=== PATIENT | female | born 1955 | race Two or more races ===

== ENCOUNTER 2022-11-16 14:09 | Outpatient (CLI) | payer MEDICARE, OTHER ==
[2022-11-16 16:14] LABS: CALCIUM, SERUM 9.5 mg/dL (8.5-10.1); CREATININE 0.6 mg/dL (0.6-1.3)
[2022-11-16 16:21] LABS: BILIRUBIN,URINE NEGATIVE (NEGATIVE); COLOR,URINE YELLOW (YELLOW); LEUKOCYTE ESTERASE ,URINE NEGATIVE (NEGATIVE); NITRITE, URINE NEGATIVE (NEGATIVE); PROTEIN,URINE NEGATIVE (NEGATIVE); UGLUCOSE NEGATIVE (NEGATIVE); UROBILINOGEN,URINE 0.2 EU/dL (0.2)
[2022-11-16 16:28] LABS: BASOPHILS # (AUTO) 0.1 K/uL (0.0-0.2); BASOPHILS % (AUTO) 0.7 % (0.0-2.0); EOSINOPHILS % (AUTO) 2.3 % (0.0-6.0); HEMATOCRIT 41 % (33-45); HEMOGLOBIN 12.9 g/dL (11.5-14.8); LYMPHOCYTES # (AUTO) 1.9 K/uL (0.8-4.8); LYMPHOCYTES % (AUTO) 21.5 % (20.0-44.0); MEAN CORPUSCULAR HGB CONC 32 g/dl (31.0-36.0); MEAN CORPUSCULAR VOLUME 85 fL (82-100); MONOCYTES # (AUTO) 0.5 K/uL (0.1-1.30); MONOCYTES % (AUTO) 5.8 % (2.0-12.0); NEUTROPHILS % (AUTO) 69.7 % (43.0-81.0); PLATELET COUNT (AUTO) 228 K/uL (150-450); RED BLOOD CELL COUNT(AUTO) 4.79 MIL/uL (4.0-5.2); WHITE BLOOD COUNT (AUTO) 8.7 K/uL (4.3-11.0)
== END 2022-11-16 23:59 | disposition home or self-care (01) ==
LOC: RAD 14:09
PROVIDERS: ATTEND Internal Medicine Pulmonary Disease
DX: Z01.818 Encounter for other preprocedural examination (principal)
CPT/HCPCS: 36415; 71045-TC; 80048-TC; 85025-TC; 85730-TC

== ENCOUNTER 2022-11-30 07:55 | Outpatient (CLI) | payer MEDICARE, OTHER | END 2022-11-30 23:59 | disposition home or self-care (01) | LOC: LAB 07:55 | PROVIDERS: ATTEND Dentist Oral and Maxillofacial Surgery | DX: Z01.812 Encounter for preprocedural laboratory examination (principal); Z20.822 Contact with and (suspected) exposure to COVID-19 | CPT/HCPCS: U0003; C9803 ==

== ENCOUNTER 2022-12-04 05:28 | Inpatient (IN) | payer MEDICARE, OTHER ==
--- NOTE | 2022-12-04 06:55 | NUR ---
RN ADMITTING NOTE PATIENT IN BED, A/O X 4, ABLE TO MAKE NEEDS KNOWN; PATIENT IS FOR SURGERY SCHEDULED AT 0730H; STABLE ON ROOM AIR, TOLERATING WELL BREATHING EVENLY AND NO S/S OF DISTRESS; TRIED TO INSERT IV ACCESS TWICE BUT FAILED BECAUSE PATIENT CAN'T TOLERATE INSERTION, ENDORSED TO OR STAFF VIA PHONE; SECURED AND VERIFIED SIGNED CONSENTS, PREOP CHECKLIST ACCOMPLISHED; ENCOURAGED VERBALIZATION OF NEEDS; SAFETY MEASURES IMPLEMENTED, BED IN LOW AND LOCKED POSITION, SIDE RAILS UP X 2, CALL LIGHT WITHIN REACH; AWAITING PICKUP FROM OR STAFF.
[2022-12-04] MEDS ORDERED: DEXAMETHASONE SOD PHOSPHATE 10 MG/ML VIAL ONE (07:05)
[2022-12-04] MEDS ORDERED: ANESTHESIA TRAY IN PYXIS 1 EA TRAY MC ONE (07:05)
[2022-12-04] MEDS ORDERED: LIDOCAINE HCL/PF 1% 30 ML SDV ONE (07:05)
[2022-12-04] MEDS ORDERED: VANCOMYCIN 1 GM VIAL ONE (07:05)
[2022-12-04] MEDS ORDERED: MIDAZOLAM HCL 2 MG/2ML VIAL ONE (07:20)
[2022-12-04] MEDS ORDERED: FENTANYL PF 100MCG/2ML AMPUL ONE ×2 (07:20→08:58)
[2022-12-04] MEDS ORDERED: FAMOTIDINE/PF INJ 20 MG/2 ML VIAL IV ONE (07:21)
[2022-12-04] MEDS ORDERED: ROCURONIUM BROMIDE 50 MG/5 ML ONE (07:21)
[2022-12-04] MEDS ORDERED: LIDOCAINE 1%-EPI 1:100,000 20 ML VIAL ONE (08:02)
--- NOTE | 2022-12-04 11:55 | NUR ---
RN NOTE RECEIVED PATIENT FROM OR VIA CRISTEL AT THIS TIME, A/O X 4, RECEIVED BEDSIDE REPORT FROM RUDOLPH LE RN. PT HAD ORIF OF BASAL BONE SURGERY. ABLE TO MAKE NEEDS KNOWN; STABLE ON ROOM AIR, TOLERATING WELL BREATHING EVENLY AND NO S/S OF DISTRESS. NO COMPLAINTS OF PAIN AT THIS TIME. VS TAKEN, BP 97/40, P 65, RR 16, TEMP 98.4. NOTIFIED HOSPITALIST PATIENT IS GOING TO BE ADMITTED MED-SURG. SAFETY MEASURES IMPLEMENTED, BED IN LOW AND LOCKED POSITION, SIDE RAILS UP X 2, CALL LIGHT WITHIN REACH, WILL CONTINUE TO MONITOR AND ASSIST.
[2022-12-04 12:00] VITALS: BP 97/40
--- NOTE | 2022-12-04 12:15 | NUR ---
RN NOTE NOTIFIED HOSPITALIST, DR BAIN, PT IS BACK FROM SURGERY AND GOING TO BE ADMITTED MED-SURG AND NEEDS CONSULTATION FOR PULMONOLOGY AND CARDIOLOGY, AWARE, AND SAID WILL TAKE A LOOK.
[2022-12-04] MEDS ORDERED: IV NS 0.9% 1,000 ML IV PRN (13:00)
[2022-12-04] MEDS ORDERED: ACETAMINOPHEN 325 MG TABLET PO PRN ×2 (13:30→20:00)
[2022-12-04 16:09] VITALS: BP 107/56
--- NOTE | 2022-12-04 17:15 | NUR ---
RN NOTE PT COMPLAINED OF PAIN. TYLENOL 650MG PRN GIVEN TO PATIENT. WILL CONTINUE TO MONITOR AND ASSIST.
--- NOTE | 2022-12-04 18:35 | NUR ---
RN CLOSING NOTE PATIENT RESTING IN BED, AWAKE, A/OX4, STABLE ON RA, BREATHING EVEN AND NON LABORED. WITH IV ACCESS ON LEFT WRIST #22G RUNNING NS@30ML/HR. PROVIDED ICE PACKS FOR PATIENT, PT WAS ABLE TO URINATE AFTER SURGERY. SAFETY PRECAUTIONS IN PLACE: CALL LIGHT AND TABLE WITHIN REACH, SIDE RAILS UP X 2, BED IN LOWEST LOCKED POSITION. WILL ENDORSE TO ONCOMING NURSE FOR YENNIFER.
--- NOTE | 2022-12-04 19:50 | NUR ---
MSRN ASLEEP EASILY AWAKENED WHEN CALLED. ICEPACKS ON BOTH JAW AREAS. NO BLEEDING. V/S STABLE. REMINDED TO CALL STAFF FOR ANY ASSISTANCE OR DISCOMFORTS, SAFETY PRECAUTIONS EMPHASIZED. WELL UNDERSTOOD. EAGER TO GO HOME IN AM.
[2022-12-04 20:00] VITALS: BP 120/73
[2022-12-04] MEDS ORDERED: MAG HYDROX/AL HYDROX/SIMETH 30 ML UDC PO PRN (20:00)
[2022-12-04] MEDS ORDERED: ONDANSETRON HCL/PF 4 MG/2 ML VIAL IVP PRN (20:00)
[2022-12-04] MEDS ORDERED: MORPHINE SULFATE INJ 2 MG/ML DISP.SYRIN IV PRN (20:00)
[2022-12-04] MEDS ORDERED: HYDROCODONE/APAP 10/325MG TABLET PO PRN (20:00)
[2022-12-04] MEDS ORDERED: MAGNESIUM HYDROXIDE 30 ML UDC PO PRN (20:00)
[2022-12-04] MEDS ORDERED: Z GUARD REMEDY 4 OZ OINT TP PRN (20:00)
--- NOTE | 2022-12-04 23:57 | NUR ---
MSRN ASLEEP, PRESENT IVF INFUSING WELL. CLOSELY WATCHED.
--- NOTE | 2022-12-05 05:15 | NUR ---
MSRN ASSISTED TO RESTROOM. REFUSED TO USE BSC. VOIDED FREELY. SAT ON THE CHAIR FOR AWHILE.
--- NOTE | 2022-12-05 05:45 | NUR ---
MSRN VERBALIZES SEVERE HEADACHE, FELT DIZZY GETTING UP FROM CHAIR, TYLENOL 2 TABS PO ADMINISTERED. ASSISTED BACK TO BED, FELT BETTER AFTER FEW MINUTES, IVF RESUMED. APPLE JUICE CONSUMED. WANTED SOME JELLO. SERVED. REMINDED TO CALL STAFF FOR FURTHER DISCOMFORTS. CALL LIGHT WITHIN REACH. SAFETY PRECAUTIONS EMPHASIZED. CONTINUED MONITORING. NO BLEEDING. SCD OFF FOR NOW REQUESTED.
[2022-12-05 05:48] LABS: BASOPHILS % (AUTO) 0.1 % (0.0-2.0); EOSINOPHILS % (AUTO) 0.3 % (0.0-6.0); HEMATOCRIT 33 % (33-45); HEMOGLOBIN 10.7 g/dL (11.5-14.8); LYMPHOCYTES # (AUTO) 1.8 K/uL (0.8-4.8); LYMPHOCYTES % (AUTO) 20.1 % (20.0-44.0); MEAN CORPUSCULAR HGB CONC 33 g/dl (31.0-36.0); MEAN CORPUSCULAR VOLUME 84 fL (82-100); MONOCYTES # (AUTO) 0.8 K/uL (0.1-1.30); MONOCYTES % (AUTO) 8.5 % (2.0-12.0); NEUTROPHILS # (AUTO) 6.3 K/uL (1.8-8.9); PLATELET COUNT (AUTO) 231 K/uL (150-450); WHITE BLOOD COUNT (AUTO) 8.9 K/uL (4.3-11.0)
[2022-12-05 06:14] LABS: CALCIUM, SERUM 8.6 mg/dL (8.5-10.1); CREATININE 0.6 mg/dL (0.6-1.3); MAGNESIUM 2.1 mg/dL (1.8-2.4); PHOSPHORUS 3.6 mg/dL (2.5-4.9)
--- NOTE | 2022-12-05 07:27 | NUR ---
MS RN OPENING NOTE RECEIVED PATIENT IN BED, AWAKE. A/O X 4, ABLE TO MAKE NEEDS KNOWN. PATIENT STILL IN PAIN BUT TOLERABLE. PATIENT VERBALIZED THAT SHE IS DIZZY ESPECIALLY DURING AMBULATION. NO BLEEDING NOTED. ON ROOM AIR, TOLERATING WELL. IV ACCESS ON LEFT WRIST #22G, INTACT AND SALINE LOCKED. SAFETY MEASURES IMPLEMENTED: CALL LIGHT AND TABLE WITHIN EASY REACH, SIDE RAILS UP X 2, BED IN LOWEST LOCKED POSITION. WILL CONTINUE TO MONITOR.
[2022-12-05 08:00] VITALS: BP 127/76
[2022-12-05] MEDS ORDERED: ACETAMINOPHEN 325 MG TABLET PO PRN (09:30)
--- NOTE | 2022-12-05 10:05 | NUR ---
RN NOTE PATIENT VERBALIZED THAT SHE IS ON PAIN WITH THE SCALE OF 8/10 BUT PREFERS TO TAKE TYLENOL, TYLENOL 650MG PO PRN GIVEN AT 1000. WILL CONTINUE TO MONITOR.
[2022-12-05] MEDS ORDERED: TRAMADOL HCL 50 MG TABLET PO PRN (10:30)
--- NOTE | 2022-12-05 13:35 | NUR ---
[employer] SALES CONSULTANT NOTES PATIENT DISCHARGED TO HOME, IN STABLE CONDITION. A/O X 4, AMBULATORY, ON ROOM AIR TOLERATING WELL. WITH SMALL SWELLING IN THE RIGHT SIDE OF FACE/JAW DUE TO SURGERY. V/S TAKEN AND RECORDED. NO BLEEDING NOTED. IV ACCESS ON LEFT WRIST REMOVED, DRY DRESSING APPLIED ON SITE. ALL BELONGINGS ACCOUNTED FOR. DISCHARGE INSTRUCTIONS GIVEN TO PATIENT, VERBALIZED UNDERSTANDING. NAME ARM BAND REMOVED. MD AND CHARGE NURSE AWARE OF DISCHARGE. SURGERY MD AWARE. PT LEFT THE UNIT @ 1333 VIA WHEELCHAIR ACCOMPANIED BY DAUGHTER AND SUPERVISOR W[employer]MENT [employer]IL[employer].
== END 2022-12-05 13:30 | disposition home or self-care (01) | DRG 141 ==
LOC: DS 05:28 → MED 05:30
PROVIDERS: ADMIT Internal Medicine; ATTEND Internal Medicine
PROC: 09BQ0ZZ Excision of Right Maxillary Sinus, Open Approach (ICD-10-PCS; principal; 2022-12-04)
PROC: 0N5R0ZZ Destruction of Maxilla, Open Approach (ICD-10-PCS; principal; 2022-12-04)
PROC: 09UQ07Z Supplement Right Maxillary Sinus with Autologous Tissue Substitute, Open Approach (ICD-10-PCS; principal; 2022-12-04)
PROC: 09UR07Z Supplement Left Maxillary Sinus with Autologous Tissue Substitute, Open Approach (ICD-10-PCS; principal; 2022-12-04)
PROC: 09BR0ZX Excision of Left Maxillary Sinus, Open Approach, Diagnostic (ICD-10-PCS; principal; 2022-12-04)
PROC: 0NSR04Z Reposition Maxilla with Internal Fixation Device, Open Approach (ICD-10-PCS; principal; 2022-12-04)
DX: M27.2 Inflammatory conditions of jaws (principal); S02.40CK Maxillary fracture, right side, subsequent encounter for fracture with nonunion; S02.601 Fracture of unspecified part of body of right mandible; S02.40DK Maxillary fracture, left side, subsequent encounter for fracture with nonunion; D16.5 Benign neoplasm of lower jaw bone; D14.0 Benign neoplasm of middle ear, nasal cavity and accessory sinuses; D16.4 Benign neoplasm of bones of skull and face; J32.0 Chronic maxillary sinusitis; E11.9 Type 2 diabetes mellitus without complications; E78.5 Hyperlipidemia, unspecified; E66.9 Obesity, unspecified; G62.9 Polyneuropathy, unspecified; I10 Essential (primary) hypertension; I25.10 Atherosclerotic heart disease of native coronary artery without angina pectoris; I35.0 Nonrheumatic aortic (valve) stenosis; K21.9 Gastro-esophageal reflux disease without esophagitis; M19.90 Unspecified osteoarthritis, unspecified site; M81.0 Age-related osteoporosis without current pathological fracture; Z86.73 Personal history of transient ischemic attack (TIA), and cerebral infarction without residual deficits; Z98.84 Bariatric surgery status; Z88.5 Allergy status to narcotic agent
CPT/HCPCS: 36415; 80048-TC; 82962-TC; 83735-TC; 84100-TC; 85025-TC; 87081-TC; 88305-TC; 88311-TC; 88312-TC; A4217; A4223; C1713; G0378; J1100; J2250; J2370; J2405; J2704; J2765; J3010; J3370; J3490; J7030

== ENCOUNTER 2023-04-12 10:19 | Outpatient (CLI) | payer MEDICARE, OTHER ==
[2023-04-12 11:39] LABS: BASOPHILS # (AUTO) 0.1 K/uL (0.0-0.2); BASOPHILS % (AUTO) 1.1 % (0.0-2.0); EOSINOPHILS # (AUTO) 0.3 K/uL (0.0-0.7); EOSINOPHILS % (AUTO) 4.4 % (0.0-6.0); HEMATOCRIT 36 % (33-45); HEMOGLOBIN 11.3 g/dL (11.5-14.8); LYMPHOCYTES # (AUTO) 2.1 K/uL (0.8-4.8); LYMPHOCYTES % (AUTO) 37.1 % (20.0-44.0); MEAN CORPUSCULAR HEMOGLOBIN 25 PG (26.0-33.0); MEAN CORPUSCULAR HGB CONC 32 g/dl (31.0-36.0); MEAN CORPUSCULAR VOLUME 78 fL (82-100); MONOCYTES # (AUTO) 0.3 K/uL (0.1-1.30); MONOCYTES % (AUTO) 5.9 % (2.0-12.0); NEUTROPHILS # (AUTO) 2.9 K/uL (1.8-8.9); NEUTROPHILS % (AUTO) 51.5 % (43.0-81.0); PLATELET COUNT (AUTO) 287 K/uL (150-450); RED BLOOD CELL COUNT(AUTO) 4.59 MIL/uL (4.0-5.2); RED CELL DISTRIBUTION WIDTH 17.2 % (11.5-15.0); WHITE BLOOD COUNT (AUTO) 5.7 K/uL (4.3-11.0)
[2023-04-12 11:44] LABS: CALCIUM, SERUM 9.5 mg/dL (8.5-10.1); CREATININE 0.6 mg/dL (0.6-1.3); POTASSIUM 4.1 mmol/L (3.5-5.1)
[2023-04-12 11:52] LABS: APPEARANCE,URINE CLEAR (CLEAR); BILIRUBIN,URINE NEGATIVE (NEGATIVE); BLOOD, URINE NEGATIVE Ery/uL (NEGATIVE); COLOR,URINE YELLOW (YELLOW); KETONES,URINE NEGATIVE (NEGATIVE); LEUKOCYTE ESTERASE ,URINE NEGATIVE (NEGATIVE); NITRITE, URINE NEGATIVE (NEGATIVE); PROTEIN,URINE NEGATIVE (NEGATIVE); UGLUCOSE NEGATIVE (NEGATIVE); UROBILINOGEN,URINE 0.2 EU/dL (0.2)
[2023-04-12 12:00] LABS: PARTIAL THROMBOPLASTIN TIME 29.9 SEC (24.3-34.3); PROTHROMBIN TIME 10.5 SECS (9.2-11.1)
== END 2023-04-12 23:59 | disposition home or self-care (01) ==
LOC: RAD 10:19
PROVIDERS: ATTEND Internal Medicine Pulmonary Disease
DX: Z01.818 Encounter for other preprocedural examination (principal); R94.31 Abnormal electrocardiogram [ECG] [EKG]
CPT/HCPCS: 36415; 71045-TC; 80048-TC; 85025-TC; 85730-TC

== ENCOUNTER 2023-04-30 07:27 | Inpatient (IN) | payer MEDICARE, OTHER ==
[~2023-04-30] VITALS: Ht 154.9 cm; Wt 73.9 kg
[2023-04-30 08:00] VITALS: BP 157/65; TEMP 97.7; O2SAT 100
[2023-04-30] MEDS ORDERED: dexaMETHasone SOD PHOSPHATE 10 MG/ML VIAL ONE (09:49)
[2023-04-30] MEDS ORDERED: LIDOCAINE 2%-EPI 1:100,000 30 ML VIAL ONE (09:50)
[2023-04-30] MEDS ORDERED: VANCOMYCIN 1 GM VIAL ONE (09:50)
[2023-04-30] MEDS ORDERED: MAG HYDROX/AL HYDROX/SIMETH 30 ML UDC PO PRN (10:00)
[2023-04-30] MEDS ORDERED: MAGNESIUM HYDROXIDE 30 ML UDC PO PRN (10:00)
[2023-04-30] MEDS ORDERED: HYDROCODONE/APAP 10/325MG TABLET PO PRN (10:00)
[2023-04-30] MEDS ORDERED: ONDANSETRON HCL/PF 4 MG/2 ML VIAL IVP PRN ×2 (10:00→14:00)
[2023-04-30] MEDS ORDERED: ACETAMINOPHEN 325 MG TABLET PO PRN (10:00)
[2023-04-30] MEDS ORDERED: ZOLPIDEM TARTRATE 5 MG TABLET PO PRN (10:00)
[2023-04-30] MEDS ORDERED: Z GUARD REMEDY 4 OZ OINT TP PRN (10:00)
[2023-04-30] MEDS ORDERED: LABETALOL HCL IV 100MG VIAL ONE (11:06)
[2023-04-30] MEDS ORDERED: KETOROLAC TROMETHAMINE INJ 30 MG/ML VIAL IV PRN (14:30)
[2023-04-30 16:00] VITALS: BP 117/70; TEMP 97.6; O2SAT 98
[2023-04-30] MEDS: IV NS 0.9% 1,000 ML IV PRN (16:56)
[2023-04-30 20:00] VITALS: BP 99/60; TEMP 99; O2SAT 94
[2023-04-30] MEDS: VANCOMYCIN 1 GM in IV D5W 250ml IV SCH (21:24)
[2023-05-01] MEDS: IV NS 0.9% 1,000 ML IV PRN (05:11)
[2023-05-01 07:38] LABS: BASOPHILS % (AUTO) 0.1 % (0.0-2.0); HEMATOCRIT 38 % (33-45); HEMOGLOBIN 11.7 g/dL (11.5-14.8); LYMPHOCYTES # (AUTO) 1.3 K/uL (0.8-4.8); LYMPHOCYTES % (AUTO) 14.1 % (20.0-44.0); MEAN CORPUSCULAR HEMOGLOBIN 25 PG (26.0-33.0); MEAN CORPUSCULAR HGB CONC 31 g/dl (31.0-36.0); MEAN CORPUSCULAR VOLUME 79 fL (82-100); MONOCYTES # (AUTO) 0.3 K/uL (0.1-1.30); MONOCYTES % (AUTO) 3.9 % (2.0-12.0); NEUTROPHILS # (AUTO) 7.4 K/uL (1.8-8.9); NEUTROPHILS % (AUTO) 81.9 % (43.0-81.0); PLATELET COUNT (AUTO) 223 K/uL (150-450); RED BLOOD CELL COUNT(AUTO) 4.76 MIL/uL (4.0-5.2); RED CELL DISTRIBUTION WIDTH 17.5 % (11.5-15.0)
[2023-05-01 08:00] VITALS: BP 123/55; TEMP 98.1; O2SAT 100
[2023-05-01 08:09] LABS: CALCIUM, SERUM 9.4 mg/dL (8.5-10.1); CREATININE 0.6 mg/dL (0.6-1.3); MAGNESIUM 2.1 mg/dL (1.8-2.4); PHOSPHORUS 3.9 mg/dL (2.5-4.9); POTASSIUM 4.1 mmol/L (3.5-5.1)
[2023-05-01] MEDS: VANCOMYCIN 1 GM in IV D5W 250ml IV SCH (10:00)
== END 2023-05-01 10:35 | disposition home or self-care (01) | DRG 496 ==
LOC: DS 07:27 → MED 08:13
PROVIDERS: ADMIT Nurse Practitioner Acute Care; ATTEND Nurse Practitioner Acute Care
PROC: 0NBV0ZX Excision of Left Mandible, Open Approach, Diagnostic (ICD-10-PCS; principal; 2023-04-30)
PROC: 0NPW04Z Removal of Internal Fixation Device from Facial Bone, Open Approach (ICD-10-PCS; 2023-04-30)
PROC: 0NBT0ZX Excision of Right Mandible, Open Approach, Diagnostic (ICD-10-PCS; 2023-04-30)
PROC: 0NSV04Z Reposition Left Mandible with Internal Fixation Device, Open Approach (ICD-10-PCS; 2023-04-30)
PROC: 0NBR0ZX Excision of Maxilla, Open Approach, Diagnostic (ICD-10-PCS; 2023-04-30)
DX: T84.69XA Infection and inflammatory reaction due to internal fixation device of other site, initial encounter (principal); S02.40CA Maxillary fracture, right side, initial encounter for closed fracture; S02.609K Fracture of mandible, unspecified, subsequent encounter for fracture with nonunion; S02.40DA Maxillary fracture, left side, initial encounter for closed fracture; E78.5 Hyperlipidemia, unspecified; I10 Essential (primary) hypertension; I25.10 Atherosclerotic heart disease of native coronary artery without angina pectoris; E11.9 Type 2 diabetes mellitus without complications; M81.0 Age-related osteoporosis without current pathological fracture; Z86.73 Personal history of transient ischemic attack (TIA), and cerebral infarction without residual deficits; X58.XXXD Exposure to other specified factors, subsequent encounter; Y83.8 Other surgical procedures as the cause of abnormal reaction of the patient, or of later complication, without mention of misadventure at the time of the procedure; Y92.009 Unspecified place in unspecified non-institutional (private) residence as the place of occurrence of the external cause; D16.4 Benign neoplasm of bones of skull and face; E66.9 Obesity, unspecified; Z68.30 Body mass index [BMI] 30.0-30.9, adult
CPT/HCPCS: 36415; 80048-TC; 83735-TC; 84100-TC; 85025-TC; A4223; G0378; J0461; J1100; J1885; J2405; J2704; J3370; J3490; J7030; J7060